=== PATIENT | female | born 1970 | race Caucasian/White ===

== ENCOUNTER 2017-01-13 23:05 | Emergency (ER) | payer MEDICARE, MEDICAID ==
[~2017-01-13] VITALS: Ht 167.6 cm; Wt 99.8 kg
[~2017-01-13 23:05] MED LIST: AMOX500C2 PO; ARPZ20T PO; ARPZ30T; ARPZ30T PO; BENZ-13 PO; CEFD300C3 PO; CLIN75CA2 PO; D50KC PO; DULO60CA58; DULO60CA6 PO; HYDR-2856 PO; HYDR-700 PO; LACT1CAP62 PO; LISI1TAB6; LISI5TAB PO; PRD20T PO; PREN1TAB39 PO; SLEEP AID PO; TRAM50TA2 PO; ZLP10T PO; ZOLP5TAB7
--- NOTE | 2017-01-13 23:36 | ED GI ---
General Chief Complaint: Abdominal/GI Problems Stated Complaint: RECTAL BLEEDING Nursing Triage Note: c/o constipation and hemorrhoids Sepsis Screen: No Definite Risk Source of Information: Patient Exam Limitations: No Limitations History of Present Illness Time Seen By Provider: 23:35 Initial Comments Patient complains of bleeding hemorrhoids for the past few days. She states the bleeding is getting worse. She has been constipated and has been straining at stool. She also thinks she may have a bladder infection. Currently menstruating Allergies and Home Medications Allergies Coded Allergies: clindamycin (Verified Allergy, Mild, RASH AND ITCHING, 12/10/12) sulfamethoxazole (Verified Allergy, Mild, RASH, 12/10/12) trimethoprim (Verified Allergy, Mild, RASH, 12/10/12) Penicillins (Verified Allergy, Unknown, 09/06/14) Home Medications Aripiprazole 30 Mg Tablet, #30 (Reported) Docusate Sodium 100 Mg Capsule, 100 MG PO BID for 10 Days Prescribed by: MIKE SAHA on 01/14/17 0004 Duloxetine HCl 60 Mg Capsule., #60 (Reported) Hydrocortisone 30 Gm Cream..g., 30 GM RC BID, #1 Prescribed by: MIKE SAHA on 01/14/17 0004 Lisinopril/Hydrochlorothiazide 1 Each Tablet, #30 (Reported) Zolpidem Tartrate 5 Mg Tablet, #30 (Reported) Review of Systems Constitutional: no symptoms reported Gastrointestinal: See HPI, Rectal Bleeding Genitourinary: Frequency Musculoskeletal: no symptoms reported Past Qkdiymz-Mrcxxd-Dzpldc Hx Patient Social History Alcohol Use: Denies Use Recreational Drug Use: No Smoking Status: Current Everyday Smoker Type Used: Cigarettes Recent Foreign Travel: No Contact w/Someone Who Travel: No Recent Infectious Disease Expo: No Recent Hopitalizations: Yes (D&C, mental issues) Immunizations Up To Date Tetanus Booster (TDap): Less than 5yrs Seasonal Allergies Seasonal Allergies: No Surgeries HX Surgeries: Yes (D&C) Surgeries: Orthopedic Respiratory Hx Respiratory Disorders: No Cardiovascular Hx Cardiac Disorders: Yes Cardiac Disorders: Hypertension Neurological Hx Neurological Disorders: No Reproductive System Hx Reproductive Disorders: No Sexually Transmitted Disease: No Genitourinary Hx Genitourinary Disorders: No Gastrointestinal Hx Gastrointestinal Disorders: Yes Gastrointestinal Disorders: Gall Bladder Disease Musculoskeletal Hx Musculoskeletal Disorders: No Endocrine Hx Endocrine Disorders: No HEENT HX ENT Disorders: Yes (TOP DENTURES) Cancer Hx Cancer: No Psychosocial Hx Psychiatric Problems: No Integumentary HX Skin/Integumentary Disorder: No Blood Transfusions Hx Blood Disorders: No Reviewed Nursing Assessment Reviewed/Agree w Nursing PMH: Yes Family Medical History Significant Family History: No Pertinent Family Hx Physical Exam Vital Signs VS - Last 72 Hours, by Label 01/13/17 23:12 Temp 98.4 Pulse 115 Resp 18 B/P (MAP) 127/80 Pulse Ox 96 Capillary Refill : Less Than 3 Seconds General Appearance: WD/WN, no apparent distress Neck: supple Respiratory: lungs clear, normal breath sounds Cardiovascular: regular rate, rhythm, no edema Gastrointestinal: non tender, soft Rectal: hemorrhoids (large inflamed tender nonthrombosed external hemorrhoids with no active bleeding.) Extremities: normal inspection Neurologic/Psychiatric: alert, normal mood/affect Skin: normal color, warm/dry Progress/Results/Core Measures Results/Orders Lab Results Laboratory Tests Test 01/13/17 23:35 01/13/17 23:40 Range/Units White Blood Count 11.3 H 4.3-11.0 10^3/uL Red Blood Count 4.34 L 4.35-5.85 10^6/uL Hemoglobin 12.4 11.5-16.0 G/DL Hematocrit 37 35-52 % Mean Corpuscular Volume 86 80-99 FL Mean Corpuscular Hemoglobin 29 25-34 PG Mean Corpuscular Hemoglobin Concent 33 32-36 G/DL Red Cell Distribution Width 16.7 H 10.0-14.5 % Platelet Count 297 130-400 10^3/uL Mean Platelet Volume 10.6 H 7.4-10.4 FL Neutrophils (%) (Auto) 59 42-75 % Lymphocytes (%) (Auto) 29 12-44 % Monocytes (%) (Auto) 10 0-12 % Eosinophils (%) (Auto) 2 0-10 % Basophils (%) (Auto) 0 0-10 % Neutrophils # (Auto) 6.7 1.8-7.8 X 10^3 Lymphocytes # (Auto) 3.3 1.0-4.0 X 10^3 Monocytes # (Auto) 1.1 H 0.0-1.0 X 10^3 Eosinophils # (Auto) 0.3 0.0-0.3 10^3/uL Basophils # (Auto) 0.0 0.0-0.1 10^3/uL Urine Color YELLOW Urine Clarity SLIGHTLY CLOUDY Urine pH 5 5-9 Urine Specific [place] 1.020 1.016-1.022 Urine Protein 2+ H NEGATIVE Urine Glucose (UA) NEGATIVE NEGATIVE Urine Ketones 1+ H NEGATIVE Urine Nitrite NEGATIVE NEGATIVE Urine Bilirubin NEGATIVE NEGATIVE Urine Urobilinogen 1 NORMAL MG/DL Urine Leukocyte Esterase 2+ H NEGATIVE Urine RBC (Auto) 5+ H NEGATIVE Urine RBC >100 H /HPF Urine WBC 0-2 /HPF Urine Squamous Epithelial Cells 10-25 H /HPF Urine Crystals NONE /LPF Urine Bacteria TRACE /HPF Urine Casts NONE /LPF Urine Mucus LARGE H /LPF Urine Culture Indicated NO Labs were reviewed and shared with patient My Orders Orders - MIKE SAHA MD Cbc With Automated Diff (01/13/17 23:20) Ua Culture If Indicated (01/13/17 23:20) Vital Signs/I&O Vital Sign - Last 12Hours 01/13/17 23:12 Temp 98.4 Pulse 115 Resp 18 B/P (MAP) 127/80 Pulse Ox 96 Blood Pressure Mean: 96 Departure Impression Impression: Primary Impression: Bleeding external hemorrhoids Disposition: 01 HOME, SELF-CARE Condition: Stable Departure-Patient Inst. Decision time for Depature: 00:02 Referrals: NO,LOCAL PHYSICIAN (PCP/Family) Primary Care Physician Patient Instructions: Hemorrhoids Scripts Hydrocortisone (Anusol-Hc) 30 Gm Cream..g. 30 GM RC BID, #1 TUBE Prov: MIKE SAHA MD 01/14/17 Docusate Sodium (Colace) 100 Mg Capsule 100 MG PO BID for 10 Days, CAP Prov: MIKE SAHA MD 01/14/17 MIKE SAHA MD Jan 13, 2017 23:36
[2017-01-13 23:42] LABS: BASOPHILS % (AUTO) 0 % (0-10); EOSINOPHILS # (AUTO) 0.3 10^3/uL (0.0-0.3); EOSINOPHILS % (AUTO) 2 % (0-10); LYMPHOCYTES # (AUTO) 3.3 X 10^3 (1.0-4.0); LYMPHOCYTES % (AUTO) 29 % (12-44); MEAN CORPUSCULAR HEMOGLOBIN 29 PG (25-34); MEAN CORPUSCULAR HGB CONC 33 G/DL (32-36); MEAN CORPUSCULAR VOLUME 86 FL (80-99); MEAN PLATELET VOLUME 10.6 FL (7.4-10.4); MONOCYTES # (AUTO) 1.1 X 10^3 (0.0-1.0); MONOCYTES % (AUTO) 10 % (0-12); NEUTROPHILS # (AUTO) 6.7 X 10^3 (1.8-7.8); NEUTROPHILS % (AUTO) 59 % (42-75); PLATELET COUNT 297 10^3/uL (130-400); RED BLOOD COUNT 4.34 10^6/uL (4.35-5.85); RED CELL DISTRIBUTION WIDTH 16.7 % (10.0-14.5); WHITE BLOOD COUNT 11.3 10^3/uL (4.3-11.0)
[2017-01-13 23:48] LABS: BILIRUBIN,URINE NEGATIVE (NEGATIVE); KETONES,URINE 1+ (NEGATIVE); LEUKOCYTE ESTERASE ,URINE 2+ (NEGATIVE); NITRITE,URINE NEGATIVE (NEGATIVE); PH,URINE 5 (5-9); PROTEIN,URINE 2+ (NEGATIVE); UROBILINOGEN,URINE 1 MG/DL (NORMAL)
[2017-01-14] MEDS ORDERED: HYDR30CR71 RC (00:04)
[2017-01-14] MEDS ORDERED: DOCU-143 PO (00:04)
[2017-01-14 00:16] LABS: WBC,URINE 0-2 /HPF
[2017-01-14 00:25] VITALS: BP 124/78
== END 2017-01-14 00:24 | disposition home or self-care (01) ==
LOC: EDUNIT# 23:05 → ER 23:08
DX: K64.4 Residual hemorrhoidal skin tags (principal); I10 Essential (primary) hypertension; Z79.899 Other long term (current) drug therapy
CPT/HCPCS: 36415; 81000; 85025; 99282

== ENCOUNTER 2018-01-02 14:33 | Emergency (ER) | payer MEDICARE, MEDICAID ==
[~2018-01-02] VITALS: Ht 167.6 cm; Wt 98.4 kg
[~2018-01-02 14:33] MED LIST changes: +DOCU-143 PO; +HYDR30CR71 RC
[2018-01-02] MEDS ORDERED: LACTATED RINGERS 1,000 ML IV ONE (14:51)
--- NOTE | 2018-01-02 14:53 | ED Chest Pain ---
General Chief Complaint: Chest Pain Stated Complaint: CP Source: patient Exam Limitations: no limitations History of Present Illness Date Seen by Provider: Jan 02, 2018 Time Seen by Provider: 14:53 Initial Comments To ER with central chest pain described as an "vice" that began this morning. Pain lasted about an hour and then resolved. It then recurred about an hour and a half ago and has been constant since then. She denies shortness of breath nausea or vomiting but the pain does radiate up to her neck and her jaw. She has no personal history of heart disease but her mother did have congestive heart failure. She does smoke 10 cigarettes per day. She's also been under increased stress for the past week at home. Timing/Duration: changing over time Severity/Quality: moderate Location: central ASA po INTERIOR DESIGN CONSULTANT: No NTG SL INTERIOR DESIGN CONSULTANT: No Associated Symptoms: No heartburn, No nausea/vomiting Allergies and Home Medications Allergies Coded Allergies: clindamycin (Verified Allergy, Mild, RASH AND ITCHING, 12/10/12) sulfamethoxazole (Verified Allergy, Mild, RASH, 12/10/12) trimethoprim (Verified Allergy, Mild, RASH, 12/10/12) Penicillins (Verified Allergy, Unknown, 09/06/14) Home Medications Docusate Sodium 100 Mg Capsule, 100 MG PO BID Prescribed by: MIKE SAHA on 01/14/17 0004 Hydrocortisone 30 Gm Cream..g., 30 GM RC BID Prescribed by: MIKE SAHA on 01/14/17 0004 Patient Home Medication List Home Medication List Reviewed: Yes Review of Systems Constitutional: see HPI EENTM: No Symptoms Reported Respiratory: No Symptoms Reported Cardiovascular: See HPI, Chest Pain Gastrointestinal: No Symptoms Reported Genitourinary: No Symptoms Reported Musculoskeletal: no symptoms reported Skin: no symptoms reported Psychiatric/Neurological: No Symptoms Reported Endocrine: No Symptoms Reported Hematologic/Lymphatic: No Symptoms Reported Past Bwkewzm-Krpoyj-Jddhcq Hx Patient Social History Type Used: Cigarettes Recent Foreign Travel: No Contact w/Someone Who Travel: No Recent Hopitalizations: Yes (D&C, mental issues) Immunizations Up To Date Tetanus Booster (TDap): Less than 5yrs Seasonal Allergies Seasonal Allergies: No Past Medical History Orthopedic Hypertension Reproductive Disorders: No Sexually Transmitted Disease: No Gall Bladder Disease Family Medical History No Pertinent Family Hx Physical Exam Vital Signs Vital Signs - First Documented 01/02/18 15:03 Temp 98.4 Pulse 100 Resp 18 B/P (MAP) 142/94 (110) Pulse Ox 98 O2 Delivery Room Air Capillary Refill : General Appearance: No Apparent Distress, WD/WN HEENT: PERRL/EOMI, TMs Normal Neck: Full Range of Motion, Normal Inspection Respiratory: No Accessory Muscle Use, No Respiratory Distress Cardiovascular: Regular Rate, Rhythm, Normal Peripheral Pulses Gastrointestinal: Normal Bowel Sounds, Non Tender, Soft Extremity: Normal Capillary Refill, Normal Inspection Neurologic/Psychiatric: Alert, Oriented x3, No Motor/Sensory Deficits Skin: Normal Color, Warm/Dry Progress/Results/Core Measures Lab Results Laboratory Tests Test 01/02/18 14:46 01/02/18 16:50 Range/Units White Blood Count 13.2 H 4.3-11.0 10^3/uL Red Blood Count 4.32 L 4.35-5.85 10^6/uL Hemoglobin 12.8 11.5-16.0 G/DL Hematocrit 37 35-52 % Mean Corpuscular Volume 86 80-99 FL Mean Corpuscular Hemoglobin 30 25-34 PG Mean Corpuscular Hemoglobin Concent 34 32-36 G/DL Red Cell Distribution Width 16.1 H 10.0-14.5 % Platelet Count 314 130-400 10^3/uL Mean Platelet Volume 10.7 H 7.4-10.4 FL Neutrophils (%) (Auto) 67 42-75 % Lymphocytes (%) (Auto) 22 12-44 % Monocytes (%) (Auto) 9 0-12 % Eosinophils (%) (Auto) 2 0-10 % Basophils (%) (Auto) 0 0-10 % Neutrophils # (Auto) 8.9 H 1.8-7.8 X 10^3 Lymphocytes # (Auto) 3.0 1.0-4.0 X 10^3 Monocytes # (Auto) 1.1 H 0.0-1.0 X 10^3 Eosinophils # (Auto) 0.2 0.0-0.3 10^3/uL Basophils # (Auto) 0.0 0.0-0.1 10^3/uL Prothrombin Time 13.3 12.2-14.7 SEC INR Comment 1.0 0.8-1.4 Activated Partial Thromboplast Time 32 24-35 SEC D-Dimer 0.61 H 0.00-0.49 UG/ML Sodium Level 137 135-145 MMOL/L Potassium Level 3.6 3.6-5.0 MMOL/L Chloride Level 101 98-107 MMOL/L Carbon Dioxide Level 22 21-32 MMOL/L Anion Gap 14 5-14 MMOL/L Blood Urea Nitrogen 9 7-18 MG/DL Creatinine 0.85 0.60-1.30 MG/DL Estimat Glomerular Filtration Rate > 60 BUN/Creatinine Ratio 11 Glucose Level 112 H 70-105 MG/DL Calcium Level 9.7 8.5-10.1 MG/DL Magnesium Level 2.1 1.8-2.4 MG/DL Total Bilirubin 0.3 0.1-1.0 MG/DL Aspartate Amino Transf (AST/SGOT) 15 5-34 U/L Alanine Aminotransferase (ALT/SGPT) 10 0-55 U/L Alkaline Phosphatase 83 40-136 U/L Myoglobin 39.1 10.0-92.0 NG/ML Troponin I < 0.30 < 0.30 <0.30 NG/ML B-Type Natriuretic Peptide < 10.0 <100.0 PG/ML Total Protein 8.1 6.4-8.2 GM/DL Albumin 4.5 3.2-4.5 GM/DL My Orders Orders - KYM DIEHL APRN Cbc With Automated Diff (01/02/18 14:51) Magnesium (01/02/18 14:51) Chest 1 View, Ap/Pa Only (01/02/18 14:51) Ekg Tracing (01/02/18 14:51) Cardiac Profile 1 (01/02/18 14:51) Comprehensive Metabolic Panel (01/02/18 14:51) Myoglobin Serum (01/02/18 14:51) Protime With Inr (01/02/18 14:51) Partial Thromboplastin Time (01/02/18 14:51) O2 (01/02/18 14:51) Monitor-Rhythm Ecg Trace Only (01/02/18 14:51) Aspirin Chewable Tablet (Baby Aspirin Ch (01/02/18 15:00) Saline Lock/Iv-Start (01/02/18 14:51) BNP (01/02/18 14:51) Fibrin Degradation Products (01/02/18 14:51) Saline Lock/Iv-Start (01/02/18 14:51) Lactated Ringers (Lr 1000 Ml Iv Solution (01/02/18 14:51) Metoprolol Tartrate Injection (Lopressor (01/02/18 15:00) Ct Angio Chest W (01/02/18 15:33) Iohexol Injection (Omnipaque 350 Mg/Ml 1 (01/02/18 16:00) Ns (Ivpb) (Sodium Chloride 0.9%) (01/02/18 16:00) Troponin I (01/02/18 16:44) Medications Given in ED Current Medications Medications Dose Ordered Sig/Joseph Route Start Time Stop Time Status Last Admin Dose Admin Aspirin 324 mg ONCE ONCE PO 01/02/18 15:00 01/02/18 15:01 DC 01/02/18 15:18 324 MG Iohexol 125 ml ONCE ONCE IV 01/02/18 16:00 01/02/18 16:02 DC 01/02/18 16:02 125 ML Lactated Ringer's 1,000 ml @ 0 mls/hr Q0M ONCE IV 01/02/18 14:51 01/02/18 14:53 DC 01/02/18 15:19 0 MLS/HR Sodium Chloride 80 ml ONCE ONCE IV 01/02/18 16:00 01/02/18 16:02 DC 01/02/18 16:02 80 ML Vital Signs/I&O 01/02/18 01/02/18 01/02/18 15:03 15:03 17:45 Temp 98.4 Pulse 100 89 Resp 18 20 B/P (MAP) 142/94 (110) 125/85 Pulse Ox 98 98 O2 Delivery Room Air Diagonstic Imaging: Xray, CT Comments NAME: ERNESTINA DIANA [facility] REC#: [id number] PT STATUS: REG ER : 1970 PHYSICIAN: KYM DIEHL SOLUTION STRATEGIST ADMIT DATE: 01/02/18/ER Draft Date of Exam:01/02/18 CT ANGIO CHEST W INDICATION: Hypertension and chest pain. TECHNIQUE: CTA chest obtained with IV contrast bolus and axial slices and MIP reconstructions. FINDINGS: The pulmonary parenchymal vessels appear well opacified with no CT evidence of pulmonary emboli. There is no evidence of aortic aneurysm or dissection. Great vessel origins are unremarkable. There is no pleural or pericardial fluid. There is no adenopathy in the mediastinum or cherelle or axillary regions. Visualized portions of the upper abdomen were unremarkable. Lung parenchymal windows demonstrate no pulmonary parenchymal infiltrates. There is a 3 mm nodule in the right upper lobe anterolaterally, without calcification. IMPRESSION: No evidence of pulmonary emboli or aortic dissection or definite acute process in the chest. There is a 3 mm nodule in the right upper lobe anteriorly which is nonspecific. Nodules of this size do not require followup unless the patient is at high clinical risk, consider followup if clinically warranted in six months. Dictated on workstation # [id number] Dict: 01/02/18 1613 Trans: 01/02/18 1621 [id number] Interpreted by: JUNITO CHOE MD Electronically signed by: Departure Communication (Admissions) [id number] resting in bed, despite no treatment here her chest pain is resolved now. Shes been listening to music. States "i carry a lot of my anxiety in my chest" and she believes that was the cause of this chest pain. Impression Primary Impression: Chest pain Disposition: 01 HOME, SELF-CARE Condition: Improved Departure-Patient Inst. Decision time for Depature: 17:09 Referrals: MARIA DOLORES MOCTEZUMA MD (PCP/Family) Primary Care Physician Patient Instructions: Chest Pain (DC) Add. Discharge Instructions: 1. Follow up with your doctor for recheck within 72 hours 2. Return to ER for any concerns or worsening symptoms All discharge instructions reviewed with patient and/or family. Voiced understanding. KYM DIEHL APRN Jan 02, 2018 14:53
[2018-01-02 14:58] LABS: BASOPHILS % (AUTO) 0 % (0-10); EOSINOPHILS # (AUTO) 0.2 10^3/uL (0.0-0.3); EOSINOPHILS % (AUTO) 2 % (0-10); HEMATOCRIT 37 % (35-52); HEMOGLOBIN 12.8 G/DL (11.5-16.0); LYMPHOCYTES % (AUTO) 22 % (12-44); MEAN CORPUSCULAR HEMOGLOBIN 30 PG (25-34); MEAN CORPUSCULAR HGB CONC 34 G/DL (32-36); MEAN CORPUSCULAR VOLUME 86 FL (80-99); MEAN PLATELET VOLUME 10.7 FL (7.4-10.4); MONOCYTES # (AUTO) 1.1 X 10^3 (0.0-1.0); MONOCYTES % (AUTO) 9 % (0-12); NEUTROPHILS # (AUTO) 8.9 X 10^3 (1.8-7.8); NEUTROPHILS % (AUTO) 67 % (42-75); PLATELET COUNT 314 10^3/uL (130-400); RED BLOOD COUNT 4.32 10^6/uL (4.35-5.85); RED CELL DISTRIBUTION WIDTH 16.1 % (10.0-14.5); WHITE BLOOD COUNT 13.2 10^3/uL (4.3-11.0)
[2018-01-02] MEDS ORDERED: meTOprolol 5 MG/5 ML (LOPRESSOR) VIAL IV ONE (15:00)
[2018-01-02] MEDS ORDERED: ASPIRIN 81 MG CHEW (CHILDREN'S ASA) PO ONE (15:00)
[2018-01-02 15:09] LABS: PROTHROMBIN TIME PATIENT 13.3 SEC (12.2-14.7)
--- NOTE | 2018-01-02 15:16 | Diagnostic Imaging Report ---
INDICATION: Chest pain EXAM: Frontal chest obtained at 3:09 hours p.m. COMPARISON with 05/30/2015 FINDINGS: The heart and mediastinal silhouette are normal in appearance. The lungs are clear. There is no pneumothorax or pleural fluid. IMPRESSION: Negative chest. Dictated by: Dictated on workstation # [id number]
[2018-01-02 15:17] LABS: ALANINE AMINOTRANSFERASE 10 U/L (0-55); ALBUMIN 4.5 GM/DL (3.2-4.5); ALKALINE PHOSPHATASE 83 U/L (40-136); BILIRUBIN,TOTAL 0.3 MG/DL (0.1-1.0); BUN/CREATININE RATIO 11; CALCIUM 9.7 MG/DL (8.5-10.1); CARBON DIOXIDE 22 MMOL/L (21-32); CHLORIDE 101 MMOL/L (98-107); CREATININE SERUM 0.85 MG/DL (0.60-1.30); GFR ESTIMATED > 60; GLUCOSE 112 MG/DL (70-105); MAGNESIUM 2.1 MG/DL (1.8-2.4); POTASSIUM 3.6 MMOL/L (3.6-5.0); SODIUM 137 MMOL/L (135-145); TOTAL PROTEIN 8.1 GM/DL (6.4-8.2)
[2018-01-02 15:23] LABS: MYOGLOBIN SERUM 39.1 NG/ML (10.0-92.0)
[2018-01-02] MEDS ORDERED: NS 250 ML (IVPB) BAG IV ONE (16:00)
[2018-01-02] MEDS ORDERED: IOHEXOL 350 MG/ML 150 ML (OMNIPAQUE 350) VIAL IV ONE (16:00)
--- NOTE | 2018-01-02 16:21 | Diagnostic Imaging Report ---
INDICATION: Hypertension and chest pain. TECHNIQUE: CTA chest obtained with IV contrast bolus and axial slices and MIP reconstructions. FINDINGS: The pulmonary parenchymal vessels appear well opacified with no CT evidence of pulmonary emboli. There is no evidence of aortic aneurysm or dissection. Great vessel origins are unremarkable. There is no pleural or pericardial fluid. There is no adenopathy in the mediastinum or cherelle or axillary regions. Visualized portions of the upper abdomen were unremarkable. Lung parenchymal windows demonstrate no pulmonary parenchymal infiltrates. There is a 3 mm nodule in the right upper lobe anterolaterally, without calcification. IMPRESSION: No evidence of pulmonary emboli or aortic dissection or definite acute process in the chest. There is a 3 mm nodule in the right upper lobe anteriorly which is nonspecific. Nodules of this size do not require followup unless the patient is at high clinical risk, consider followup if clinically warranted in six months. Dictated by: Dictated on workstation # [id number]
[2018-01-02 17:45] VITALS: BP 125/85
== END 2018-01-02 17:45 | disposition home or self-care (01) ==
LOC: EDUNIT# 14:33 → ER 14:35
DX: R07.9 Chest pain, unspecified (principal); I10 Essential (primary) hypertension; Z87.19 Personal history of other diseases of the digestive system; Z87.59 Personal history of other complications of pregnancy, childbirth and the puerperium; Z88.0 Allergy status to penicillin; Z88.1 Allergy status to other antibiotic agents; Z88.2 Allergy status to sulfonamides; Z82.49 Family history of ischemic heart disease and other diseases of the circulatory system
CPT/HCPCS: 36415; 71045; 71275; 80053; 83735; 83874; 83880; 84484; 85025; 85379; 85610; 85730; 93005; 93041

== ENCOUNTER 2019-05-31 13:15 | Emergency (ER) | payer MEDICARE, MEDICAID ==
[~2019-05-31] VITALS: Ht 167.6 cm; Wt 98.4 kg
[~2019-05-31 13:15] MED LIST changes: -DULO60CA58; +DULO60CA59
--- NOTE | 2019-05-31 13:51 | ED Lower Extremity ---
General Chief Complaint: Lower Extremity Stated Complaint: R KNEE SWELLING,L KNEE PAIN Nursing Triage Note: Patient reports R leg swelling x 1 week Nursing Sepsis Screen: No Definite Risk Source: patient Exam Limitations: no limitations History of Present Illness Date Seen by Provider: May 31, 2019 Time Seen by Provider: 13:49 Initial Comments To ER with right knee swelling for one week. No known injury. Has a history of degenerative joint she states. It has never swelled up this large before. No known injury. No fevers or chills or systemic symptoms. She feels as though her knee is going to give out on her when she is up walking. Just finished oral steroids 2 weeks ago for an eye condition. Onset: last week Severity: moderate Pain/Injury Location: right knee Method of Injury: unknown Modifying Factors: Worse With Movement Allergies and Home Medications Allergies Coded Allergies: clindamycin (Verified Allergy, Mild, RASH AND ITCHING, 12/10/12) sulfamethoxazole (Verified Allergy, Mild, RASH, 12/10/12) trimethoprim (Verified Allergy, Mild, RASH, 12/10/12) Penicillins (Verified Allergy, Unknown, 09/06/14) Home Medications Docusate Sodium 100 Mg Capsule, 100 MG PO BID Prescribed by: MIKE SAHA on 01/14/17 0004 Hydrocortisone 30 Gm Cream..g., 30 GM RC BID Prescribed by: MIKE SAHA on 01/14/17 0004 Patient Home Medication List Home Medication List Reviewed: Yes Review of Systems Constitutional: see HPI EENTM: see HPI Respiratory: no symptoms reported Cardiovascular: no symptoms reported Genitourinary: no symptoms reported Musculoskeletal: see HPI Skin: no symptoms reported Psychiatric/Neurological: No Symptoms Reported Past Wrkohfw-Xdgufx-Sibpxa Hx Patient Social History Alcohol Use: Denies Use Recreational Drug Use: No Smoking Status: Current Everyday Smoker Type Used: Cigarettes Recent Foreign Travel: No Contact w/Someone Who Travel: No Recent Infectious Disease Expo: No Recent Hopitalizations: No Physical Abuse: No Sexual Abuse: No Mistreated: No Fear: No Immunizations Up To Date Tetanus Booster (TDap): Less than 5yrs Seasonal Allergies Seasonal Allergies: No Past Medical History Surgeries: Yes (D&C, r/l wrist, r ring finger) Orthopedic Respiratory: No Cardiac: Yes Hypertension Neurological: No Reproductive Disorders: No Sexually Transmitted Disease: No Genitourinary: No Gastrointestinal: Yes Gall Bladder Disease Musculoskeletal: No Endocrine: No HEENT: No Cancer: No Psychosocial: No Integumentary: No Blood Disorders: No Family Medical History No Pertinent Family Hx Physical Exam Vital Signs Vital Signs - First Documented 05/31/19 13:31 Temp 98.2 Pulse 87 Resp 18 B/P (MAP) 144/82 (102) Pulse Ox 95 Capillary Refill : Less Than 3 Seconds Height, Weight, BMI Height: 5'6.00" Weight: 217lbs. oz. 98.469680ip; 32.28 BMI Method:Stated General Appearance: WD/WN, no apparent distress HEENT: PERRL/EOMI, normal ENT inspection Respiratory: no respiratory distress, no accessory muscle use Hips: bilateral hip non-tender, bilateral hip normal inspection, bilateral hip normal range of motion Legs: bilateral leg non-tender, bilateral leg normal inspection, bilateral leg normal range of motion Knees: right knee pain, right knee soft tissue tenderness, right knee other (no palpable effusion no erythema no abrasion no ecchymosis) Ankles: bilateral ankle non-tender, bilateral ankle normal inspection, bilateral ankle normal range of motion Feet: bilateral foot non-tender, bilateral foot normal inspection, bilateral foot normal range of motion Neurologic/Psychiatric: alert, normal mood/affect, oriented x 3 Skin: normal color Progress/Results/Core Measures Results/Orders My Orders Orders - KYM DIEHL APRN Knee Immobilizer (05/31/19 13:49) Vital Signs/I&O 05/31/19 13:31 Temp 98.2 Pulse 87 Resp 18 B/P (MAP) 144/82 (102) Pulse Ox 95 Blood Pressure Mean: 102 Departure Impression Primary Impression: Internal derangement of knee joint Qualified Codes: M23.91 - Unspecified internal derangement of right knee Disposition: HOME, SELF-CARE Condition: Stable Departure-Patient Inst. Decision time for Depature: 13:51 Referrals: MARIA DOLORES MOCTEZUMA MD (PCP/Family) Primary Care Physician Patient Instructions: Internal Derangement of the Knee (DC) Add. Discharge Instructions: Wear the immobilizer when you're up moving around. Follow-up with primary care to schedule an MRI of the knee. All discharge instructions reviewed with patient and/or family. Voiced understanding. KYM DIEHL APRN May 31, 2019 13:51
[2019-05-31 13:58] VITALS: BP 144/82
== END 2019-05-31 13:58 | disposition home or self-care (01) ==
LOC: EDUNIT# 13:15 → ER 13:16
DX: M23.91 Unspecified internal derangement of right knee (principal); I10 Essential (primary) hypertension; F17.210 Nicotine dependence, cigarettes, uncomplicated; Z88.1 Allergy status to other antibiotic agents; Z88.2 Allergy status to sulfonamides; Z88.0 Allergy status to penicillin
CPT/HCPCS: 99283

== ENCOUNTER 2019-07-25 12:50 | Outpatient (CLI) | payer MEDICARE, MEDICAID ==
[~2019-07-25] VITALS: Ht 167 cm; Wt 100.9 kg
[~2019-07-25 12:50] MED LIST changes: +CHOL2000 PO; +FERR-84 PO; +METH18TA12 PO
== END 2019-07-25 13:15 | disposition home or self-care (01) ==
LOC: PREOP 12:50
PROVIDERS: ATTEND Surgery
DX: Z01.818 Encounter for other preprocedural examination (principal)

== ENCOUNTER 2019-08-22 05:33 | Outpatient (CLI) | payer MEDICARE, MEDICAID ==
[~2019-08-22] VITALS: Ht 167 cm; Wt 100.9 kg
== END 2019-08-22 12:15 ==
LOC: PREOP 05:33
PROVIDERS: ATTEND Surgery
DX: Z01.818 Encounter for other preprocedural examination (principal)

== ENCOUNTER 2019-08-26 11:00 | Day surgery (SDC) | payer MEDICARE, MEDICAID ==
[~2019-08-26] VITALS: Ht 172.7 cm; Wt 100.9 kg
[2019-08-26] MEDS ORDERED: LACTATED RINGERS 1,000 ML IV ONE (11:04)
[2019-08-26] MEDS ORDERED: LACTATED RINGERS 1,000 ML IV STA (11:08)
[2019-08-26 11:15] VITALS: BP 119/80
[2019-08-26] MEDS ORDERED: HURRICAINE EXT TUBE (BENZOCAINE) XX PRN (11:15)
[2019-08-26] MEDS ORDERED: MIDAZOLAM 2 MG/2 ML (VERSED) VIAL ONE (11:27)
[2019-08-26] MEDS ORDERED: PROPOFOL INJECTION 50 ML IV ONE ×2 (11:27→11:49)
[2019-08-26 12:00] VITALS: BP 148/89
[2019-08-26] MEDS ORDERED: PANT40TA2 PO (12:03)
--- NOTE | 2019-08-26 12:04 | Progress Note-Post Operative ---
Post-Operative Progess Note Surgeon (s)/Rn Hyperbaric (s) Surgeon DENISHA VILLANUEVA DO Rn Hyperbaric: na Pre-Operative Diagnosis Iron deficiency anemia, Blood in stools Post-Operative Diagnosis Gastritis, hemrrhoidal disease, hiatal hernia Procedure & Operative Findings Date of Procedure 08/26/19 Procedure Performed/Findings EGD with biopsies, colonoscopy Anesthesia Type per retail event and sales assistant Estimated Blood Loss Estimated blood loss (mL): none Specimens/Packing Specimens Removed biopsies of antrum, GE junction, and distal esophagus DENISHA VILLANUEVA DO Aug 26, 2019 12:04 POS
[2019-08-26 12:05] VITALS: BP 138/84
--- NOTE | 2019-08-26 12:05 | Discharge Inst-Simple/Standard ---
Discharge Inst-Standard Discharge Medications New, Converted or Re-Newed RX: Transmitted to Pharmacy Patient Instructions/Follow Up Plan of Care/Instructions/FU: follow in in clinic in 2 weeks to discuss pathology report, if any concerns arise before then, will see at that time Activity as Tolerated: Yes Discharge Diet: Regular Diet DENISHA VILLANUEVA DO Aug 26, 2019 12:05 POS
[2019-08-26 12:15] VITALS: BP 138/84
[2019-08-26 12:35] VITALS: BP 135/75
--- NOTE | 2019-08-26 19:30 | OPERATIVE REPORT ---
DATE OF SERVICE: 08/26/2019 PREOPERATIVE DIAGNOSES: Iron deficiency anemia and blood in stools. POSTOPERATIVE DIAGNOSES: Gastritis, hiatal hernia, hemorrhoidal disease. PROCEDURE: EGD with biopsies, colonoscopy. SURGEON: Denisha Spence DO ANESTHESIA: Per WASTE SALVAGER. ESTIMATED BLOOD LOSS: None. COMPLICATIONS: None. INDICATIONS: The patient is a 49-year-old female with symptoms as noted above. She understands risks and benefits of procedure and wished to proceed with procedures. Consent was signed in the chart. DESCRIPTION OF PROCEDURE: The patient was taken to the endoscopy suite, placed in left lateral recumbent position. Timeout was performed. Scope was inserted in mouth, down the esophagus, stomach and into the duodenum without difficulty. There were no polyps, masses or ulcerations in the duodenum. Scope was slowly retracted back into the stomach where it was further insufflated. A significant erythematous changes and inflammation present in the antrum. Biopsy was obtained. Scope was slowly retracted back and retroflexed noting a hiatal hernia, no other pathology noted. Scope was returned to its normal position, slowly withdrawn to the distal esophagus. At the GE junction, some prominence of the GE junction and inflammation was present. Biopsy was obtained. Scope was then continued slowly retracted back to the distal esophagus. Biopsy of the distal esophagus was obtained. Scope was then slowly retracted back to completely remove noting no other pathology. Digital rectal exam was performed noting internal and external hemorrhoidal disease. No palpable polyps, masses or ulcerations. Scope was inserted in the rectum, advanced all the way to cecum with minimal difficulty. Prep was adequate. Scope was then slowly retracted back. No polyps, masses, or ulcerations within the cecum, ascending, transverse, descending and sigmoid colon. Once in the rectum, scope was retroflexed noting hemorrhoidal disease. Scope was returned to its normal position, slowly withdrawn until completely removed. The patient tolerated procedure well without any complications. She was taken to recovery room in stable condition. RECOMMENDATIONS: The patient will need repeat colonoscopy in 10 years unless family history of colon cancer, which then be 5 years. Any issues before that be seen at that time. The patient to be started on Protonix 40 mg daily to see how she is doing and see how her symptoms are doing at that time. Any issues before that be seen at that time. Await pathology results. The patient will have follow up appointment in 2 to 3 weeks. Job ID: [id number] DocumentID: [id number] Dictated Date: 08/26/2019 12:03:58 [facility] [place] Date: 08/26/2019 19:29:53 Dictated By: DENISHA SPENCE DO
--- NOTE | 2019-08-28 15:03 | Anesthesia-General Post-Op ---
MAC Patient Condition Mental Status/LOC: Same as Preop Cardiovascular: Satisfactory Nausea/Vomiting: Absent Respiratory: Satisfactory Pain: Controlled Complications: Absent Post Op Complications Complications None Follow Up Care/Instructions Patient Instructions None needed. Anesthesiology Discharge Order Discharge Order late entry from 08/26/19 at 1232: Patient is doing well, no complaints, stable vital signs, no apparent adverse anesthesia problems. No complications reported per nursing. ZAHRA PERDUE CRNA Aug 28, 2019 15:03 POS
== END 2019-08-26 12:35 ==
LOC: ENDO 11:00
PROVIDERS: ATTEND Surgery
DX: K92.1 Melena (principal); K29.50 Unspecified chronic gastritis without bleeding; K20.9 Esophagitis, unspecified; K22.70 Barrett's esophagus without dysplasia; K62.1 Rectal polyp; D50.9 Iron deficiency anemia, unspecified; K31.89 Other diseases of stomach and duodenum; K64.9 Unspecified hemorrhoids; I10 Essential (primary) hypertension; E66.9 Obesity, unspecified; F17.210 Nicotine dependence, cigarettes, uncomplicated; F41.9 Anxiety disorder, unspecified; F32.9 Major depressive disorder, single episode, unspecified; F90.9 Attention-deficit hyperactivity disorder, unspecified type; Z88.1 Allergy status to other antibiotic agents; Z79.899 Other long term (current) drug therapy; Z68.36 Body mass index [BMI] 36.0-36.9, adult; Z88.0 Allergy status to penicillin; Z82.49 Family history of ischemic heart disease and other diseases of the circulatory system
CPT/HCPCS: 84703; 88305; 88342

== ENCOUNTER 2019-12-03 12:57 | Outpatient (CLI) | payer MEDICARE, MEDICAID ==
[~2019-12-03] VITALS: Ht 167.7 cm; Wt 110.9 kg
[~2019-12-03 12:57] MED LIST changes: +CHOL200078 PO; +LISI1TAB29 PO; -LISI1TAB6; -METH18TA12 PO; +METH18TA20 PO; +PANT40TA2 PO
== END 2019-12-03 13:05 | disposition home or self-care (01) ==
LOC: PREOP 12:57
PROVIDERS: ATTEND Surgery
DX: Z01.818 Encounter for other preprocedural examination (principal)

== ENCOUNTER 2020-02-13 09:21 | Outpatient (RCR) | payer MEDICARE, MEDICAID ==
[~2020-02-13] VITALS: Ht 167 cm; Wt 101.0 kg
[~2020-02-13 09:21] MED LIST changes: +ARIP30TA PO; +CHOL20003 PO
[2020-02-19] MEDS ORDERED: HYDR-4226 PO (08:54)
[2020-02-19] MEDS ORDERED: DOCU-143 PO (08:54)
== END 2020-02-13 14:50 | disposition home or self-care (01) ==
LOC: PREOP 09:21
PROVIDERS: ATTEND Surgery
DX: Z01.818 Encounter for other preprocedural examination (principal); Z01.812 Encounter for preprocedural laboratory examination; Z11.59 Encounter for screening for other viral diseases; K64.9 Unspecified hemorrhoids
CPT/HCPCS: 87635

== ENCOUNTER 2020-02-19 06:06 | Day surgery (SDC) | payer MEDICARE, MEDICAID ==
[2020-02-19] VITALS (10 sets, daily range): BP systolic 102–140; BP diastolic 61–96
[~2020-02-19] VITALS: Ht 167 cm; Wt 101.0 kg
[2020-02-19] MEDS ORDERED: LACTATED RINGERS 1,000 ML IV PRN ×2 (06:11→06:18)
[2020-02-19] MEDS ORDERED: metroNIDAZOLE 500MG/100ML IVPB 100 ML IV ONE (06:30)
[2020-02-19] MEDS ORDERED: ceFAZolin 2 GM IV Premixed 50 ML ONE (06:37)
[2020-02-19] MEDS ORDERED: CATHETER FLUSH 10 ML SYR IV PRN (06:45)
[2020-02-19] MEDS ORDERED: proPOfol 200 MG/20 ML (DIPRIVAN) VIAL IV ONE (06:52)
[2020-02-19] MEDS ORDERED: ONDANSETRON 4 MG/2 ML (SDV) Z0FRAN ONE (06:52)
[2020-02-19] MEDS ORDERED: SEVOFLURANE (ULTANE) 15 ML INHAL SOLN ONE (06:52)
[2020-02-19] MEDS ORDERED: DEXAMETHASONE 10 MG/ML (DECADRON) 1 ML VIAL ONE (06:52)
[2020-02-19] MEDS ORDERED: LIDOCAINE PF 2% 5 ML (XYLOCAINE) VIAL ONE (06:52)
[2020-02-19] MEDS ORDERED: fentaNYL INJECTION 100 MCG/2 ML AMP ONE (06:53)
[2020-02-19] MEDS ORDERED: MIDAZOLAM 2 MG/2 ML (VERSED) VIAL ONE (06:53)
[2020-02-19] MEDS ORDERED: ceFAZolin 2 GM IV Premixed 50 ML IV ONE (07:00)
[2020-02-19] MEDS ORDERED: HYDROmorphone 2 MG/ML VIAL (DILAUDID) ONE (08:23)
[2020-02-19] MEDS ORDERED: KETOROLAC 30 MG/ML VIAL ONE (08:29)
--- NOTE | 2020-02-19 08:45 | Progress Note-Post Operative ---
Post-Operative Progess Note Surgeon (s)/Ladies' Locker Room Attendant (s) Surgeon DENISHA VILLANUEVA DO Ladies' Locker Room Attendant: na Pre-Operative Diagnosis HEMORRHOIDS Post-Operative Diagnosis same Procedure & Operative Findings Date of Procedure 02/19/20 Procedure Performed/Findings hemorrhoidectomy x 3 Anesthesia Type gen Estimated Blood Loss Estimated blood loss (mL): min Specimens/Packing Specimens Removed hemorrhoids DENISHA VILLANUEVA DO February 19, 2020 08:45
[2020-02-19] MEDS ORDERED: HYDR-4226 PO (08:54)
[2020-02-19] MEDS ORDERED: DOCU-143 PO (08:54)
--- NOTE | 2020-02-19 08:58 | Discharge Inst-Simple/Standard ---
Discharge Inst-Standard Discharge Medications New, Converted or Re-Newed RX: RX on Chart Patient Instructions/Follow Up Plan of Care/Instructions/FU: 2 weeks Bebe Sitz bath three times a day and after bowel movements. Activity as Tolerated: No Discharge Diet: Regular Diet Other Inst to Patient Follow up Appt: Make appointment for 2 week. Instructions: No lifting greater than 10 pounds. No strenuous activity. May shower in 24 hours, no tub bath or soaking. Use incentive spirometer at home as directed. No Smoking Skin/Wound Care: You have a plug in the anus, it will fall off on its own. If not out in 24 hours you can remove it. Sitz bath three times a day and after bowel movements. Symptoms to Report: Appetite Changes, Extremity Discoloration, Numbness/Tingling, Swelling Increased, Bleeding Excessive, Eyesight Changes, Pain Increased, Urine Color Change, Constipation(Persistent), Fever over 101 degree F, Pain/Pressure in chest, Urinating Difficulty, Cough Up/Vomit Blood, Heart Beat Irreg/Pounding, Pain/Pressure in jaw, Vaginal Bleeding Increase, Cramps in feet or legs, Lightheadedness, Pain/Pressure in shoulder, Diarrhea(Persistent), Memory Changes Suddenly, Questions/Concerns, Weight gain consecutive days, Dizziness/Fainting, Nausea/Vomiting, Shortness of Breath, Weight gain over 2 pounds If questions or concerns contact your physician Or seek help at emergency department. DENISHA VILLANUEVA DO February 19, 2020 08:58
[2020-02-19] MEDS ORDERED: HYDROmorphone 2 MG/ML VIAL (DILAUDID) IV ONE (09:00)
[2020-02-19] MEDS ORDERED: ONDANSETRON 4 MG/2 ML (SDV) Z0FRAN IVP PRN (09:00)
[2020-02-19] MEDS ORDERED: HYDROcodone/APAP 5 MG/325 MG (LORTAB) TAB ONE (09:36)
[2020-02-19] MEDS ORDERED: HYDROcodone/APAP 5 MG/325 MG (LORTAB) TAB PO ONE (09:45)
--- NOTE | 2020-02-19 14:49 | Anesthesia-General Post-Op ---
General Patient Condition Mental Status/LOC: Same as Preop Cardiovascular: Satisfactory Nausea/Vomiting: Absent Respiratory: Satisfactory Pain: Controlled Complications: Absent Post Op Complications Complications None Follow Up Care/Instructions Patient Instructions None needed. Anesthesia/Patient Condition Patient Condition Patient is doing well, no complaints, stable vital signs, no apparent adverse anesthesia problems. No complications reported per nursing. D/C home per [facility] Criteria: Yes CAYETANO SHEARER CRNA February 19, 2020 14:49
--- NOTE | 2020-02-19 20:23 | OPERATIVE REPORT ---
DATE OF SERVICE: 02/19/2020 PREOPERATIVE DIAGNOSIS: Hemorrhoids. POSTOPERATIVE DIAGNOSIS: Hemorrhoids. PROCEDURE PERFORMED: Hemorrhoidectomy x3. SURGEON: Denisha Spence DO ANESTHESIA: General. ESTIMATED BLOOD LOSS: Minimal. COMPLICATIONS: None. INDICATIONS FOR PROCEDURE: The patient is a 49-year-old female with hemorrhoids that are bothersome. She understands the risks and benefits of the procedure and wished to proceed with the procedure. Consent was signed in the chart. DESCRIPTION OF PROCEDURE: The patient was taken to the operating suite and she was prepped and draped in a sterile fashion in lithotomy position. Timeout was performed. Local anesthetic was infiltrated on the lateral aspects of the anus. A Dittmar retractor was inserted into the rectum and the right posterior hemorrhoid complex was grasped, elevated and using harmonic this was excised. The right anterior hemorrhoid complex was grasped and elevated and using the harmonic, this hemorrhoid was excised. Hemostasis was achieved. The left lateral hemorrhoid complex was visualized. It was grasped, elevated and using the harmonic, this was excised. Hemostasis had been achieved. No other pathology was visualized. The Gelfoam and Vaseline gauze plug was created and inserted into the anus to also help achieve hemostasis. The area was then washed and dried and the patient was taken to the recovery room in a stable condition. Job ID: [id number] DocumentID: [id number] Dictated Date: 02/19/2020 09:01:18 Wine Merchant Date: 02/19/2020 13:19:33 Dictated By: DENISHA SPENCE DO
[2020-02-20] MEDS ORDERED: POLY119P5 PO (20:06)
== END 2020-02-19 10:30 | disposition home or self-care (01) ==
LOC: SDC 06:06
PROVIDERS: ATTEND Surgery
DX: K64.8 Other hemorrhoids (principal); K64.4 Residual hemorrhoidal skin tags; E66.9 Obesity, unspecified; I10 Essential (primary) hypertension; J30.1 Allergic rhinitis due to pollen; M79.7 Fibromyalgia; F41.9 Anxiety disorder, unspecified; F32.9 Major depressive disorder, single episode, unspecified; F17.210 Nicotine dependence, cigarettes, uncomplicated; Z88.0 Allergy status to penicillin; Z88.2 Allergy status to sulfonamides; Z88.1 Allergy status to other antibiotic agents; Z79.899 Other long term (current) drug therapy; Z68.36 Body mass index [BMI] 36.0-36.9, adult; Z83.3 Family history of diabetes mellitus; Z82.3 Family history of stroke
CPT/HCPCS: 84703; 87081; 94664

== ENCOUNTER 2020-02-20 18:11 | Emergency (ER) | payer MEDICARE, MEDICAID ==
[~2020-02-20] VITALS: Ht 167.7 cm; Wt 101.0 kg
[~2020-02-20 18:11] MED LIST changes: +HYDR-4226 PO
[2020-02-20 19:12] VITALS: BP 129/84
--- NOTE | 2020-02-20 19:21 | NUR ---
PATIENT REPORTS UNABLE TO REMOVE PACKING FROM HEMMORROID SURGERY SHE HAD YESTERDAY AM. WAS TO LEAVE IN PLACE FOR 24 HOURS WHICH WAS THIS AM
--- NOTE | 2020-02-20 19:37 | ED GI ---
General Chief Complaint: Rect Problems Stated Complaint: HERNIA SURGERY:UNABLE TO HAVE BM Source of Information: Patient Exam Limitations: No Limitations History of Present Illness Date Seen by Provider: February 20, 2020 Time Seen by Provider: 19:30 Initial Comments Patient had surgery yesterday with by Dr. Villanueva have to hemorrhoids resected. She had a petroleum Xeroform gauze plugged which she never sought past and now she says she is not able to pass stool. She feels some discomfort and pain radiating up her back about midway her lumbar spine. She took hydrocodone yesterday but none today. She has a lot of anxiety. She's not having any significant abdominal pain fever chills or nausea. Vital signs are aseptic per nursing. Patient admits that she may just being premature and anxious but she wants to make sure everything is okay. Allergies and Home Medications Allergies Coded Allergies: Penicillins (Verified Allergy, Mild, RASH/ITCHING, pt has rec Rocephin w/o issue, 02/19/20) clindamycin (Verified Allergy, Mild, RASH AND ITCHING, 02/12/20) sulfamethoxazole (Verified Allergy, Mild, RASH, 02/12/20) trimethoprim (Verified Allergy, Mild, RASH, 02/12/20) Home Medications ARIPiprazole 30 Mg Tab.senspt, 30 MG PO DAILY, (Reported) Cholecalciferol (Vitamin D3) 50 Mcg Capsule, 50 MCG PO DAILY, (Reported) Docusate Sodium 100 Mg Capsule, 100 MG PO BID Prescribed by: DENISHA VILLANUEVA on 02/19/20 0854 Duloxetine HCl 60 Mg Capsule.dr, 60 MG PO DAILY, (Reported) Ferrous Sulfate 325 Mg Tablet, 325 MG PO DAILY, (Reported) Hydrocodone/Acetaminophen 1 Each Tablet, 1 TAB PO Q4-6HR Prescribed by: DENISHA VILLANUEVA on 02/19/20 0854 Hydroxyzine HCl 25 Mg Tablet, 25 MG PO BID PRN for ANXIETY, (Reported) Lisinopril/Hydrochlorothiazide 1 Each Tablet, 1 TAB PO DAILY, (Reported) Methylphenidate HCl 18 Mg Tab.er.24, 18 MG PO DAILY, (Reported) Polyethylene Glycol 3350 119 Gm Powder, 17 GM PO BID PRN for CONSTIPATION-1ST LINE Prescribed by: MELISSA CA on 02/20/202005 Patient Home Medication List Home Medication List Reviewed: Yes Review of Systems Review of Systems Constitutional: No chills, No fever EENTM: No Blurred Vision, No Double Vision Respiratory: Denies Cough, Denies Orthopnea Cardiovascular: Denies Chest Pain, Denies Lightheadedness Gastrointestinal: See HPI; Denies Abdominal Pain; Constipated; Denies Diarrhea, Denies Difficulty Swallowing, Denies Nausea Genitourinary: Denies Burning, Denies Discharge Musculoskeletal: No back pain, No joint pain Skin: No pruritus, No rash Psychiatric/Neurological: Denies Headache, Denies Numbness All Other Systems Reviewed Negative Unless Noted: Yes Past Nwdahng-Tycjqq-Qjdcse Hx Patient Social History Alcohol Use: Rarely Uses Recreational Drug Use: No (SMOKE, CIGARETTES- 5-6 PER DAY) Type Used: Cigarettes, Electronic/Vapor 2nd Hand Smoke Exposure: Yes Recent Foreign Travel: No Contact w/Someone Who Travel: No Recent Hopitalizations: No Physical Abuse: No Sexual Abuse: No Mistreated: No Fear: No Immunizations Up To Date Tetanus Booster (TDap): Less than 5yrs PED Vaccines UTD: No Date of Influenza Vaccine: Jul 25, 2019 Seasonal Allergies Seasonal Allergies: No Past Medical History Surgeries: Yes (D&C, r/l wrist, r ring finger, RIGHT KNEE, HEMORRHOIDECTOMY) Orthopedic, Tonsillectomy Respiratory: No Cardiac: Yes Hypertension Neurological: No Reproductive Disorders: No Sexually Transmitted Disease: No Genitourinary: No Gastrointestinal: Yes Hemorrhoids Musculoskeletal: No Endocrine: No HEENT: No (READING GLASSES) Loss of Vision: Denies Hearing Impairment: Denies Cancer: No Psychosocial: Yes ADD/ADHD, Anxiety, Bipolar, Depression Integumentary: No Blood Disorders: No (IRON DEF ANMEIA) Adverse Reaction/Blood Tranf: No (N/A) Family Medical History No Pertinent Family Hx Physical Exam Vital Signs Vital Signs - First Documented 02/20/20 19:12 Temp 36.4 Pulse 89 Resp 20 B/P (MAP) 129/84 (99) Pulse Ox 97 Capillary Refill : Height/Weight/BMI Height: 5'6.00" Weight: 217lbs. oz. 98.040692rk; 36.21 BMI Method:Stated General Appearance: WD/WN, no apparent distress HEENT: PERRL/EOMI, pharynx normal Neck: full range of motion, normal inspection Respiratory: no respiratory distress, no accessory muscle use Cardiovascular: normal peripheral pulses, regular rate, rhythm Gastrointestinal: normal bowel sounds, non tender, soft Genital/Rectal: other (mildly inflamed soft tissue around external hemorrhoids and previously cauterized tissue noted. No active bleeding, purulence, drainage or discharge. No evidence of a Xeroform plug) Extremities: normal range of motion, normal inspection, normal capillary refill Neurologic/Psychiatric: alert, oriented x 3, other (mildly anxious affect) Progress/Results/Core Measures Results/Orders Lab Results Laboratory Tests Test 02/20/20 19:20 Range/Units Urine Color YELLOW Urine Clarity SL CLOUDY Urine pH 7.0 5-9 Urine Specific Strawn 1.020 1.016-1.022 Urine Protein NEGATIVE NEGATIVE Urine Glucose (UA) NEGATIVE NEGATIVE Urine Ketones NEGATIVE NEGATIVE Urine Nitrite NEGATIVE NEGATIVE Urine Bilirubin NEGATIVE NEGATIVE Urine Urobilinogen 0.2 < = 1.0 MG/DL Urine Leukocyte Esterase 1+ H NEGATIVE Urine RBC (Auto) 3+ H NEGATIVE Urine RBC 25-50 H /HPF Urine WBC 0-2 /HPF Urine Squamous Epithelial Cells 2-5 /HPF Urine Crystals NONE /LPF Urine Bacteria TRACE /HPF Urine Casts NONE /LPF Urine Mucus NEGATIVE /LPF Urine Culture Indicated NO My Orders Orders - MELISSA CA Abdomen, Flat & Upright/Decub (02/20/20 19:36) Ua Culture If Indicated (02/20/20 19:36) Vital Signs/I&O 02/20/20 19:12 Temp 36.4 Pulse 89 Resp 20 B/P (MAP) 129/84 (99) Pulse Ox 97 Progress Progress Note : Time: 20:00 Progress Note No obstruction, bleeding or concerning features on examination. Suspect that she needs to get more time, stool softeners. We'll discuss the case with Dr. Villanueva. Blood in the urinalysis is likely from the recent hemorrhoidectomy. No evidence of UTI suggest a pyelonephritis consistent with her history of back pain. Diagnostic Imaging Diagonstic Imaging: Xray Plain Films/CT/US/NM/MRI: abdomen Comments [facility]. [place], [place] NAME: ERNESTINA DIANA MED REC#: [id number] PT STATUS: REG ER : 1970 PHYSICIAN: MELISSA CA MD ADMIT DATE: 02/20/20/ER Signed Date of Exam:02/20/20 ABDOMEN, FLAT & UPRIGHT/DECUB Indication: Abdominal distention Supine and upright abdominal images are obtained Lung bases are clear. Bowel gas pattern is normal. There are no pathologic masses or calcifications. IMPRESSION: Unremarkable abdomen Dictated by: Dictated on workstation # [id number] Dict: 02/20/201946 Trans: 02/20/201946 [id number] Interpreted by: INEZ BONILLA MD Electronically signed by: INEZ BONILLA MD 02/20/201946 Reviewed: Reviewed by Me Consults : Consulting Physician: DENISHA VILLANUEVA DO Consults Notes 1954: Discussed case with Dr. Villanueva and he would not do anything different right now. Says use the hydrocodone as necessary for pain and stool softeners twice a day. If by Sunday she's not had a bowel movement then she should start using MiraLAX twice a day until she has a bowel movement. She may follow-up with him as necessary. Departure Impression Primary Impression: S/P hemorrhoidectomy Additional Impressions: Constipation Qualified Codes: K59.03 - Drug induced constipation Anxiety about health Disposition: HOME, SELF-CARE Condition: Stable Departure-Patient Inst. Decision time for Depature: 20:04 Referrals: MARIA DOLORES MOCTEZUMA MD (PCP/Family) Primary Care Physician Patient Instructions: Hemorrhoidectomy (DC) Add. Discharge Instructions: Dr. Villanueva agrees it is not unusual to go up to 3 days without passing a stool. Stay active walking around and chew bubble gum. As long as you are passing gas this is good. He would recommend taking the stool softener the chest Colace twice a day and drinking plenty of fluids. Use the hydrocodone as necessary to control your pain. Hydrocodone can contribute to constipation so be aware of this. His instructions or if you have not passed the stool by 02/23/20 then you are to start MiraLAX. MiraLAX 17 g or 1 capful mixed in 6-8 ounces of fluid twice a day until you have a bowel movement. You may always follow-up with Dr. Villanueva's clinic or return to the ER if you're having significant pain, fever, nausea vomiting or other worrisome symptoms. All discharge instructions reviewed with patient and/or family. Voiced understanding. Scripts Polyethylene Glycol 3350 (Miralax) 119 Gm Powder 17 GM PO BID PRN for CONSTIPATION-1ST LINE for 7 Days, #1 EA 0 Refills Prov: MELISSA CA 02/20/20 MELISSA CA February 20, 2020 19:37
[2020-02-20 19:40] LABS: BILIRUBIN,URINE NEGATIVE (NEGATIVE); COLOR,URINE YELLOW; GLUCOSE, URINE (UA) NEGATIVE (NEGATIVE); KETONES,URINE NEGATIVE (NEGATIVE); LEUKOCYTE ESTERASE ,URINE 1+ (NEGATIVE); NITRITE,URINE NEGATIVE (NEGATIVE); PROTEIN,URINE NEGATIVE (NEGATIVE)
[2020-02-20 19:44] LABS: BACTERIA,URINE TRACE /HPF; CLARITY,URINE SL CLOUDY; RBC,URINE 25-50 /HPF; WBC,URINE 0-2 /HPF
--- NOTE | 2020-02-20 19:49 | Diagnostic Imaging Report ---
Indication: Abdominal distention Supine and upright abdominal images are obtained Lung bases are clear. Bowel gas pattern is normal. There are no pathologic masses or calcifications. IMPRESSION: Unremarkable abdomen Dictated by: Dictated on workstation # [id number]
[2020-02-20] MEDS ORDERED: POLY119P5 PO (20:06)
== END 2020-02-20 20:10 | disposition home or self-care (01) ==
LOC: EDUNIT# 18:11 → ER 18:12
DX: K59.00 Constipation, unspecified (principal); F41.9 Anxiety disorder, unspecified; I10 Essential (primary) hypertension; F31.9 Bipolar disorder, unspecified; D50.9 Iron deficiency anemia, unspecified; F90.9 Attention-deficit hyperactivity disorder, unspecified type; Z98.890 Other specified postprocedural states; Z88.0 Allergy status to penicillin; Z88.2 Allergy status to sulfonamides; Z88.1 Allergy status to other antibiotic agents; Z77.22 Contact with and (suspected) exposure to environmental tobacco smoke (acute) (chronic)
CPT/HCPCS: 74019; 81000

== ENCOUNTER 2020-03-03 14:20 | Emergency (ER) | payer MEDICARE, MEDICAID ==
[~2020-03-03] VITALS: Ht 168 cm; Wt 101.0 kg
[~2020-03-03 14:20] MED LIST changes: +POLY119P5 PO
--- NOTE | 2020-03-03 14:58 | ED Lower Extremity ---
General Chief Complaint: Lower Extremity Stated Complaint: L FOOT INJ Nursing Triage Note: PT STATES SHE DROPPED SOFA ON LT FOOT AT NOON TODAY. MINOR SWELLING ACROSS HER TOES. PT AMBULATED TO TRIAGE. Nursing Sepsis Screen: No Definite Risk Source: patient Exam Limitations: no limitations History of Present Illness Date Seen by Provider: Mar 03, 2020 Time Seen by Provider: 14:57 Initial Comments Dropped a couch on the dorsal aspect of her left foot just prior to arrival Onset: just prior to arrival Severity: moderate Pain/Injury Location: left foot Allergies and Home Medications Allergies Coded Allergies: Penicillins (Verified Allergy, Mild, RASH/ITCHING, pt has rec Rocephin w/o issue, 02/19/20) clindamycin (Verified Allergy, Mild, RASH AND ITCHING, 02/12/20) sulfamethoxazole (Verified Allergy, Mild, RASH, 02/12/20) trimethoprim (Verified Allergy, Mild, RASH, 02/12/20) Home Medications ARIPiprazole 30 Mg Tab.senspt, 30 MG PO DAILY, (Reported) Cholecalciferol (Vitamin D3) 50 Mcg Capsule, 50 MCG PO DAILY, (Reported) Docusate Sodium 100 Mg Capsule, 100 MG PO BID Prescribed by: DENISHA VILLANUEVA on 02/19/20 0854 Duloxetine HCl 60 Mg Capsule.dr, 60 MG PO DAILY, (Reported) Ferrous Sulfate 325 Mg Tablet, 325 MG PO DAILY, (Reported) Hydrocodone/Acetaminophen 1 Each Tablet, 1 TAB PO Q4-6HR Prescribed by: DENISHA VILLANUEVA on 02/19/20 0854 Hydroxyzine HCl 25 Mg Tablet, 25 MG PO BID PRN for ANXIETY, (Reported) Lisinopril/Hydrochlorothiazide 1 Each Tablet, 1 TAB PO DAILY, (Reported) Methylphenidate HCl 18 Mg Tab.er.24, 18 MG PO DAILY, (Reported) Polyethylene Glycol 3350 119 Gm Powder, 17 GM PO BID PRN for CONSTIPATION-1ST LINE Prescribed by: MELISSA CA on 02/20/202005 Patient Home Medication List Home Medication List Reviewed: Yes Review of Systems Constitutional: see HPI EENTM: see HPI Respiratory: no symptoms reported Cardiovascular: no symptoms reported Genitourinary: no symptoms reported Musculoskeletal: see HPI Skin: see HPI Psychiatric/Neurological: No Symptoms Reported Past Fwkzjge-Efpnpt-Ludhwu Hx Patient Social History Alcohol Use: Denies Use Recreational Drug Use: Yes (SMOKE, CIGARETTES- 5-6 PER DAY) Smoking Status: Current Everyday Smoker Type Used: Cigarettes, Electronic/Vapor 2nd Hand Smoke Exposure: Yes Recent Foreign Travel: No Contact w/Someone Who Travel: No Recent Infectious Disease Expo: No Recent Hopitalizations: No Physical Abuse: No Sexual Abuse: No Mistreated: No Fear: No Immunizations Up To Date Tetanus Booster (TDap): Less than 5yrs PED Vaccines UTD: No Date of Influenza Vaccine: Jul 25, 2019 Seasonal Allergies Seasonal Allergies: No Past Medical History Surgeries: Yes (D&C, r/l wrist, r ring finger, RIGHT KNEE, HEMORRHOIDECTOMY) Orthopedic, Tonsillectomy Respiratory: No Cardiac: Yes Hypertension Neurological: No : No 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 Sexually Transmitted Disease: No Genitourinary: No Gastrointestinal: Yes Hemorrhoids Musculoskeletal: No Endocrine: No HEENT: No (READING GLASSES) Loss of Vision: Denies Hearing Impairment: Denies Cancer: No Psychosocial: Yes ADD/ADHD, Anxiety, Bipolar, Depression Integumentary: No Blood Disorders: No (IRON DEF ANMEIA) Adverse Reaction/Blood Tranf: No (N/A) Family Medical History No Pertinent Family Hx Physical Exam Vital Signs Vital Signs - First Documented 03/03/20 14:28 Temp 36.7 Pulse 105 Resp 20 B/P (MAP) 118/81 (93) Pulse Ox 97 O2 Delivery Room Air Capillary Refill : Less Than 3 Seconds Height, Weight, BMI Height: 5'6.00" Weight: 217lbs. oz. 98.847808mb; 35.00 BMI Method:Stated General Appearance: WD/WN, no apparent distress Respiratory: no respiratory distress, no accessory muscle use Hips: bilateral hip non-tender, bilateral hip normal inspection Legs: bilateral leg non-tender, bilateral leg normal range of motion Knees: bilateral knee non-tender, bilateral knee normal inspection Ankles: bilateral ankle non-tender, bilateral ankle normal inspection Feet: left foot swelling (and ecchymosis to the dorsal aspect of the left foot proximal to the MTP joint) Neurologic/Psychiatric: alert, normal mood/affect, oriented x 3 Skin: normal color, warm/dry Progress/Results/Core Measures Results/Orders My Orders Orders - KYM DIEHL APRN Foot, Left, 3 Views (6/10/20 14:38) Vital Signs/I&O 03/03/20 03/03/20 14:28 15:02 Temp 36.7 36.7 Pulse 105 98 Resp 20 20 B/P (MAP) 118/81 (93) 118/81 (93) Pulse Ox 97 98 O2 Delivery Room Air Room Air Blood Pressure Mean: 93 Departure Impression Primary Impression: Contusion of foot Qualified Codes: S90.32XA - Contusion of left foot, initial encounter Disposition: HOME, SELF-CARE Condition: Stable Departure-Patient Inst. Decision time for Depature: 14:58 Referrals: MARIA DOLORES MOCTEZUMA MD (PCP/Family) Primary Care Physician Patient Instructions: Contusion (DC) Add. Discharge Instructions: All discharge instructions reviewed with patient and/or family. Voiced understanding. 1. Ice pack to the area 30 minutes at a time a few times a day for the next few days in addition to Tylenol and ibuprofen. Return to ER for any concerns. KYM DIEHL HEAD OF MOBILE Mar 03, 2020 14:58
[2020-03-03 15:02] VITALS: BP 118/81
--- NOTE | 2020-03-03 15:07 | Diagnostic Imaging Report ---
EXAMINATION: Left foot radiographs, 3 views. COMPARISON: None. HISTORY: 49-year-old female, injury to left foot. Left foot pain. FINDINGS: There is dorsal soft tissue swelling at the level of the metatarsals. There is no identified radiopaque foreign body. There is degenerative type enthesopathy at the Achilles tendon insertion. There is a small calcaneal heel spur. There is no tibiotalar joint effusion. There is no identified acute fracture. Joint spaces are well preserved. IMPRESSION: 1. No identified acute fracture or abnormal bone alignment. 2. Dorsal soft tissue swelling at the level of the metatarsals. 3. No radiopaque foreign body. Dictated by: Dictated on workstation # [id number]
== END 2020-03-03 15:02 | disposition home or self-care (01) ==
LOC: EDUNIT# 14:20 → ER 14:22
DX: S90.32XA Contusion of left foot, initial encounter (principal); I10 Essential (primary) hypertension; F90.9 Attention-deficit hyperactivity disorder, unspecified type; F41.9 Anxiety disorder, unspecified; F31.9 Bipolar disorder, unspecified; D50.9 Iron deficiency anemia, unspecified; F17.210 Nicotine dependence, cigarettes, uncomplicated; F17.290 Nicotine dependence, other tobacco product, uncomplicated; Z88.0 Allergy status to penicillin; Z88.2 Allergy status to sulfonamides; Z88.1 Allergy status to other antibiotic agents; W20.8XXA Other cause of strike by thrown, projected or falling object, initial encounter
CPT/HCPCS: 73630

== ENCOUNTER 2020-10-14 21:52 | Emergency (ER) | payer MEDICARE, MEDICAID ==
[~2020-10-14] VITALS: Ht 167 cm; Wt 101.8 kg
[2020-10-14 22:11] LABS: BASOPHILS % (AUTO) 0 % (0-10); EOSINOPHILS # (AUTO) 0.2 10^3/uL (0.0-0.3); EOSINOPHILS % (AUTO) 2 % (0-10); HEMATOCRIT 40 % (35-52); HEMOGLOBIN 13.3 g/dL (11.5-16.0); LYMPHOCYTES # (AUTO) 3.7 10^3/uL (1.0-4.0); LYMPHOCYTES % (AUTO) 31 % (12-44); MEAN CORPUSCULAR HEMOGLOBIN 29 pg (25-34); MEAN CORPUSCULAR HGB CONC 34 g/dL (32-36); MEAN CORPUSCULAR VOLUME 88 fL (80-99); MEAN PLATELET VOLUME 10.7 fL (9.0-12.2); MONOCYTES # (AUTO) 0.8 10^3/uL (0.0-1.0); MONOCYTES % (AUTO) 7 % (0-12); NEUTROPHILS # (AUTO) 7.2 10^3/uL (1.8-7.8); NEUTROPHILS % (AUTO) 60 % (42-75); PLATELET COUNT 317 10^3/uL (130-400)
[2020-10-14] MEDS ORDERED: ASPIRIN 81 MG CHEW (CHILDREN'S ASA) PO ONE (22:15)
--- NOTE | 2020-10-14 22:17 | ED Cardiac General ---
History of Present Illness General Chief Complaint: Chest Pain Stated Complaint: PRESSURE IN CHEST, HEADACHE, LIGHT HEADED Source: patient History of Present Illness Date Seen by Provider: Oct 14, 2020 Time Seen by Provider: 22:00 Initial Comments PT ARRIVES VIA POV FROM HOME C/O CHEST PRESSURE SINCE SOMETIME THIS AFTERNOON HAS INTERMITTENT SHARP PAINS IN CHEST, THEN PRESSURE IN CHEST --ALL COME AND GO. STATES SHARP PAINS ARE 6/10, PRESSURE IN CHEST IS 3/10--HAS SLIGHT PRESSURE IN CHEST NOW, BUT THEN IS GONE SHORTLY AFTER ARRIVAL ALSO C/O HEADACHE SINCE WAKING THIS AM C/O SLIGHT LIGHTHEADEDNESS NO VISION CHANGES NO PARESTHESIAS OR MOTOR DEFICITS NO SHORTNESS OF BREATH NO FEVER/SWEATS/CHILLS C/O MILD NAUSEA, NO VOMITING OR ABDOMINAL PAIN HAS BEEN "PUFFY" TODAY, BUT IS ALMOST GONE NOW GOES ON AT LENGTH ABOUT "HAVING A BAD DAY AND MY ANXIETY IS BAD TODAY" BUT DOES NOT GO INTO SPECIFICS C/O BEING TIRED BUT CAN'T SLEEP NO COUGH/CONGESTION OR URI SYMPTOMS NO LOSS OF TASTE OR SMELL NO BODY ACHES NO KNOWN SICK CONTACTS OR EXPOSURE TO COVID-19 HAS HTN AND TAKES LISINOPRIL--DENIES ANY MISSED DOSES OR CHANGE IN DOSE HAS ANXIETY--DENIES ANY MISSED DOSES OR CHANGE IN DOSE STATES SHE HAS HAD THESE SAME SYMPTOMS WITH ANXIETY DENIES ANY CARDIAC HISTORY SAW DR. MOCTEZUMA 2 WEEKS AGO FOR ROUTINE EXAM. NO MEDICATION CHANGES LAST SAW [facility] IN [place] FOR ROUTINE EXAM. NO MEDICATION CHANGES. PCP: DR. MOCTEZUMA AT [facility]: [facility] Allergies and Home Medications Allergies Coded Allergies: Penicillins (Verified Allergy, Mild, RASH/ITCHING, pt has rec Rocephin w/o issue, 02/19/20) clindamycin (Verified Allergy, Mild, RASH AND ITCHING, 02/12/20) sulfamethoxazole (Verified Allergy, Mild, RASH, 02/12/20) trimethoprim (Verified Allergy, Mild, RASH, 02/12/20) Home Medications ARIPiprazole 30 Mg Tab.senspt, 30 MG PO DAILY, (Reported) Cholecalciferol (Vitamin D3) 50 Mcg Capsule, 50 MCG PO DAILY, (Reported) Docusate Sodium 100 Mg Capsule, 100 MG PO BID Prescribed by: DENISHA VILLANUEVA on 02/19/20 0854 Duloxetine HCl 60 Mg Capsule.dr, 60 MG PO DAILY, (Reported) Ferrous Sulfate 325 Mg Tablet, 325 MG PO DAILY, (Reported) Hydrocodone/Acetaminophen 1 Each Tablet, 1 TAB PO Q4-6HR Prescribed by: DENISHA VILLANUEVA on 02/19/20 0854 Hydroxyzine HCl 25 Mg Tablet, 25 MG PO BID PRN for ANXIETY, (Reported) Lisinopril/Hydrochlorothiazide 1 Each Tablet, 1 TAB PO DAILY, (Reported) Methylphenidate HCl 18 Mg Tab.er.24, 18 MG PO DAILY, (Reported) Polyethylene Glycol 3350 119 Gm Powder, 17 GM PO BID PRN for CONSTIPATION-1ST LINE Prescribed by: MELISSA CA on 02/20/202005 Patient Home Medication List Home Medication List Reviewed: Yes Review of Systems Review of Systems Constitutional: see HPI; No chills, No diaphoresis; dizziness; No fever, No malaise, No weakness; weight gain (20 LBS) EENTM: No Symptoms Reported Respiratory: No Symptoms Reported; Denies Cough, Denies Shortness of Air Cardiovascular: See HPI, Edema; Denies Irregular Heart Rate; Lightheadedness; Denies Palpitations, Denies Syncope Gastrointestinal: See HPI; Denies Abdominal Pain, Denies Diarrhea; Nausea; Denies Vomiting Genitourinary: No Symptoms Reported, Other (PERIMENOPAUSAL--LAST PERIOD ABOUT 9 MONTHS AGO. ) Musculoskeletal: No no symptoms reported, No back pain, No neck pain Skin: no symptoms reported Psychiatric/Neurological: See HPI, Anxiety, Headache; Denies Numbness, Denies Paresthesia, Denies Seizure, Denies Tingling, Denies Tremors, Denies Weakness Endocrine: No Symptoms Reported Hematologic/Lymphatic: No Symptoms Reported Past [id number] Hx Past Med/Social Hx: Reviewed and Corrections made Patient Social History Alcohol Use: Rarely Uses Drug of Choice: TRIED DRUGS TEEN, NO IV DRUGS Smoking Status: Current Everyday Smoker (1 PPD) Type Used: Cigarettes, Electronic/Vapor 2nd Hand Smoke Exposure: Yes Recent Hopitalizations: No Immunizations Up To Date Tetanus Booster (TDap): Less than 5yrs PED Vaccines UTD: No Date of Influenza Vaccine: Jul 25, 2019 Seasonal Allergies Seasonal Allergies: No Past Medical History Surgeries: Yes (D&C, r/l wrist, r ring finger, RIGHT KNEE, HEMORRHOIDECTOMY) Orthopedic, Rectal, Tonsillectomy Respiratory: No Cardiac: Yes Hypertension Neurological: No 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 oz. 98.368978iv; 35.00 BMI Method:Stated General Appearance: No Apparent Distress, WD/WN, Anxious, Obese, Other (TALKS NON-STOP AT LENGTH) HEENT: PERRL/EOMI Neck: Full Range of Motion, Normal Inspection, Non Tender, Supple; No Carotid Bruit, No JVD Respiratory: Chest Non Tender, Normal Breath Sounds, No Accessory Muscle Use, No Respiratory Distress Cardiovascular: Regular Rate, Rhythm, No Edema, No JVD, No Murmur, Normal Peripheral Pulses Gastrointestinal: Non Tender, Soft Extremity: Normal Capillary Refill, Normal Inspection, Normal Range of Motion, Non Tender, No Calf Tenderness, No Pedal Edema Neurologic/Psychiatric: Alert, Oriented x3, No Motor/Sensory Deficits, heavy cleaner II- XII Norm as Tested, Other (ANXIOUS) Skin: Normal Color, Warm/Dry Progress/Results/Core Measures Results/Orders Lab Results Laboratory Tests Test 10/14/20 22:05 10/14/20 22:50 10/14/20 22:59 Range/Units White Blood Count 12.0 H 4.3-11.0 10^3/uL Red Blood Count 4.52 3.80-5.11 10^6/uL Hemoglobin 13.3 11.5-16.0 g/dL Hematocrit 40 35-52 % Mean Corpuscular Volume 88 80-99 fL Mean Corpuscular Hemoglobin 29 25-34 pg Mean Corpuscular Hemoglobin Concent 34 32-36 g/dL Red Cell Distribution Width 14.9 H 10.0-14.5 % Platelet Count 317 130-400 10^3/uL Mean Platelet Volume 10.7 9.0-12.2 fL Immature Granulocyte % (Auto) 0 % Neutrophils (%) (Auto) 60 42-75 % Lymphocytes (%) (Auto) 31 12-44 % Monocytes (%) (Auto) 7 0-12 % Eosinophils (%) (Auto) 2 0-10 % Basophils (%) (Auto) 0 0-10 % Neutrophils # (Auto) 7.2 1.8-7.8 10^3/uL Lymphocytes # (Auto) 3.7 1.0-4.0 10^3/uL Monocytes # (Auto) 0.8 0.0-1.0 10^3/uL Eosinophils # (Auto) 0.2 0.0-0.3 10^3/uL Basophils # (Auto) 0.0 0.0-0.1 10^3/uL Immature Granulocyte # (Auto) 0.1 0.0-0.1 10^3/uL Prothrombin Time 12.9 12.2-14.7 SEC INR Comment 0.9 0.8-1.4 Activated Partial Thromboplast Time 32 24-35 SEC Sodium Level 138 135-145 MMOL/L Potassium Level 3.4 L 3.6-5.0 MMOL/L Chloride Level 101 98-107 MMOL/L Carbon Dioxide Level 25 21-32 MMOL/L Anion Gap 12 5-14 MMOL/L Blood Urea Nitrogen 10 7-18 MG/DL Creatinine 0.97 0.60-1.30 MG/DL Estimat Glomerular Filtration Rate > 60 BUN/Creatinine Ratio 10 Glucose Level 125 H 70-105 MG/DL Calcium Level 9.5 8.5-10.1 MG/DL Corrected Calcium 9.3 8.5-10.1 MG/DL Magnesium Level 2.1 1.6-2.4 MG/DL Total Bilirubin 0.2 0.1-1.0 MG/DL Aspartate Amino Transf (AST/SGOT) 16 5-34 U/L Alanine Aminotransferase (ALT/SGPT) 17 0-55 U/L Alkaline Phosphatase 112 40-136 U/L Total Creatine Kinase 153 29-168 U/L Creatine Kinase MB 0.6 <6.6 NG/ML Myoglobin 35.2 10.0-92.0 NG/ML Troponin I < 0.028 <0.028 NG/ML B-Type Natriuretic Peptide < 10.0 <100.0 PG/ML Total Protein 7.9 6.4-8.2 GM/DL Albumin 4.2 3.2-4.5 GM/DL Amylase Level 42 25-125 U/L Lipase 9 8-78 U/L Urine Color YELLOW Urine Clarity CLEAR Urine pH 6.0 5-9 Urine Specific [place] 1.020 1.016-1.022 Urine Protein NEGATIVE NEGATIVE Urine Glucose (UA) NEGATIVE NEGATIVE Urine Ketones NEGATIVE NEGATIVE Urine Nitrite NEGATIVE NEGATIVE Urine Bilirubin NEGATIVE NEGATIVE Urine Urobilinogen 0.2 < = 1.0 MG/DL Urine Leukocyte Esterase NEGATIVE NEGATIVE Urine RBC (Auto) NEGATIVE NEGATIVE Urine RBC 2-5 H /HPF Urine WBC 0-2 /HPF Urine Squamous Epithelial Cells 0-2 /HPF Urine Crystals NONE /LPF Urine Bacteria TRACE /HPF Urine Casts NONE /LPF Urine Mucus MODERATE H /LPF Urine Culture Indicated NO Urine Opiates Screen NEGATIVE NEGATIVE Urine Oxycodone Screen NEGATIVE NEGATIVE Urine Methadone Screen NEGATIVE NEGATIVE Urine Propoxyphene Screen NEGATIVE NEGATIVE Urine Barbiturates Screen NEGATIVE NEGATIVE Ur Tricyclic Antidepressants Screen NEGATIVE NEGATIVE Urine Phencyclidine Screen NEGATIVE NEGATIVE Urine Amphetamines Screen NEGATIVE NEGATIVE Urine Methamphetamines Screen NEGATIVE NEGATIVE Urine Benzodiazepines Screen NEGATIVE NEGATIVE Urine Cocaine Screen NEGATIVE NEGATIVE Urine Cannabinoids Screen NEGATIVE NEGATIVE Urine Test NEGATIVE NEGATIVE My Orders Orders - DON ANDINO DO Cbc With Automated Diff (10/14/20 22:02) Magnesium (10/14/20 22:02) Chest 1 View, Ap/Pa Only (10/14/20 22:02) Ekg Tracing (10/14/20 22:02) Comprehensive Metabolic Panel (10/14/20 22:02) Myoglobin Serum (10/14/20 22:02) Protime With Inr (10/14/20 22:02) Partial Thromboplastin Time (10/14/20 22:02) Monitor-Rhythm Ecg Trace Only (10/14/20 22:02) Ed Iv/Invasive Line Start (10/14/20 22:02) Creatine Kinase (10/14/20 22:02) Creatine Kinase Mb (10/14/20 22:02) Lipase (10/14/20 22:02) Amylase (10/14/20 22:02) BNP (10/14/20 22:02) Troponin I (10/14/20 22:02) Aspirin Chewable Tablet (Baby Aspirin Ch (10/14/20 22:15) Drug Screen Stat (Urine) (10/14/20 22:02) Ua Culture If Indicated (10/14/20 22:02) Hcg,Qualitative Urine (10/14/20 22:59) Medications Given in ED Current Medications Medications Dose Ordered Sig/Joseph Route Start Time Stop Time Status Last Admin Dose Admin Aspirin 324 mg ONCE ONCE PO 10/14/20 22:15 10/14/20 22:17 DC 10/14/20 22:09 324 MG Vital Signs/I&O 10/14/20 10/14/20 10/14/20 22:00 22:00 23:09 Temp 36.8 36.8 Pulse 93 83 Resp 18 17 B/P (MAP) 153/98 (116) 123/86 (116) Pulse Ox 97 98 O2 Delivery Room Air Room Air Room Air Progress Progress Note : Progress Note GIVEN ASPIRIN, NTG HELD DUE TO NO ACTIVE PAIN AT THIS TIME, AND ALREADY HAS A HEADACHE BP DOWN TO 120'S/80'S SHORTLY AFTER ARRIVAL, AND HEADACHE IS GONE, PT IS CALMER NO CHEST PAIN DURING ER STAY PT FEELS COMFORTABLE GOING HOME Initial ECG Impression Date: Oct 14, 2020 Initial ECG Impression Time: 22:00 Initial ECG Rate: 83 Initial ECG Rhythm: Normal Sinus Initial ECG Impression: Nonspecific Changes Diagnostic Imaging Comments CXR--NO ACUTE PROCESS, PENDING RADIOLOGIST REVIEW Reviewed: Reviewed by Me Departure Impression Primary Impression: Chest pain Additional Impressions: HTN (hypertension) Anxiety Disposition: 01 HOME, SELF-CARE Condition: Improved Departure-Patient Inst. Referrals: MARIA DOLORES MOCTEZUMA MD (PCP/Family) Primary Care Physician Patient Instructions: Chest Pain (DC), High Blood Pressure (DC), DASH Diet, Anxiety, Adult ED, Tips to Help You [place] in Uncertain Times Add. Discharge Instructions: HOME, REST CONTINUE YOUR CURRENT MEDICATIONS PRESCRIBED TAKE 81 MG ASPIRIN DAILY FOLLOW UP WITH YOUR DR THIS WEEK FOR FURTHER CARE, RETURN TO ER IF SYMPTOMS WORSEN All discharge instructions reviewed with patient and/or family. Voiced understanding. DON ANDINO DO Oct 14, 2020 22:17
[2020-10-14 22:19] LABS: INR 0.9 (0.8-1.4); PROTHROMBIN TIME PATIENT 12.9 SEC (12.2-14.7)
[2020-10-14 22:33] LABS: ALANINE AMINOTRANSFERASE 17 U/L (0-55); ALBUMIN 4.2 GM/DL (3.2-4.5); ALKALINE PHOSPHATASE 112 U/L (40-136); AMYLASE 42 U/L (25-125); BILIRUBIN,TOTAL 0.2 MG/DL (0.1-1.0); BUN/CREATININE RATIO 10; CALCIUM 9.5 MG/DL (8.5-10.1); CARBON DIOXIDE 25 MMOL/L (21-32); CHLORIDE 101 MMOL/L (98-107); CREATINE KINASE 153 U/L (29-168); CREATININE SERUM 0.97 MG/DL (0.60-1.30); GFR ESTIMATED > 60; GLUCOSE 125 MG/DL (70-105); LIPASE 9 U/L (8-78); MAGNESIUM 2.1 MG/DL (1.6-2.4); POTASSIUM 3.4 MMOL/L (3.6-5.0); SODIUM 138 MMOL/L (135-145); TOTAL PROTEIN 7.9 GM/DL (6.4-8.2)
[2020-10-14 22:40] LABS: CREATINE KINASE MB 0.6 NG/ML (<6.6)
[2020-10-14 22:57] LABS: BILIRUBIN,URINE NEGATIVE (NEGATIVE); CLARITY,URINE CLEAR; COLOR,URINE YELLOW; GLUCOSE, URINE (UA) NEGATIVE (NEGATIVE); KETONES,URINE NEGATIVE (NEGATIVE); LEUKOCYTE ESTERASE ,URINE NEGATIVE (NEGATIVE); NITRITE,URINE NEGATIVE (NEGATIVE); PROTEIN,URINE NEGATIVE (NEGATIVE)
[2020-10-14 23:06] LABS: BACTERIA,URINE TRACE /HPF; SQUAMOUS EPITHELIAL CELL,UR 0-2 /HPF; WBC,URINE 0-2 /HPF
[2020-10-14 23:09] VITALS: BP 123/86
[2020-10-14 23:10] LABS: AMPHETAMINE SCREEN, URINE NEGATIVE (NEGATIVE); BARBITURATE SCREEN URINE NEGATIVE (NEGATIVE); BENZODIAZEPINES SCREEN URINE NEGATIVE (NEGATIVE); CANNABINOID SCREEN, URINE NEGATIVE (NEGATIVE); COCAINE SCREEN URINE NEGATIVE (NEGATIVE); METHADONE STAT NEGATIVE (NEGATIVE); METHAMPHETAMINE SCREEN URINE S NEGATIVE (NEGATIVE); OPIATE SCREEN URINE NEGATIVE (NEGATIVE); OXYCODONE STAT NEGATIVE (NEGATIVE); PROPOXYPHENE STAT NEGATIVE (NEGATIVE); TRICYCLIC ANTIDEPRESSANTS SCRE NEGATIVE (NEGATIVE)
--- NOTE | 2020-10-15 07:05 | Diagnostic Imaging Report ---
EXAMINATION: Chest radiograph, portable AP view. DATE: 10/14/2020 10:21 PM INDICATION: 50-year-old female, chest pain. COMPARISON: January 02, 2018. FINDINGS: Heart size and mediastinal contours are unremarkable. There is no identified pneumothorax. There is no large pleural effusion. There is no identified focal airspace consolidation. IMPRESSION: No identified acute cardiopulmonary abnormality. Dictated by: Dictated on workstation # [id number]
== END 2020-10-14 23:09 | disposition home or self-care (01) ==
LOC: EDUNIT# 21:52 → ER 21:55
DX: R07.9 Chest pain, unspecified (principal); I10 Essential (primary) hypertension; F41.9 Anxiety disorder, unspecified; E66.9 Obesity, unspecified; F32.9 Major depressive disorder, single episode, unspecified; F90.9 Attention-deficit hyperactivity disorder, unspecified type; F17.210 Nicotine dependence, cigarettes, uncomplicated; F17.290 Nicotine dependence, other tobacco product, uncomplicated; Z68.35 Body mass index [BMI] 35.0-35.9, adult; Z88.0 Allergy status to penicillin; Z88.1 Allergy status to other antibiotic agents; Z88.2 Allergy status to sulfonamides
CPT/HCPCS: 36415; 71045; 80053; 80306; 81000; 82150; 82550; 82553; 83690; 83735; 83874; 83880; 84484; 84703; 85025; 85610; 85730; 93005; 93041

== ENCOUNTER 2021-09-10 09:58 | Emergency (ER) | payer MEDICARE, MEDICAID ==
[~2021-09-10] VITALS: Ht 167.7 cm; Wt 108.8 kg
[~2021-09-10 09:58] MED LIST changes: +DULO60CA7 PO; -LISI1TAB29 PO; +LISI1TAB44 PO
[2021-09-10] MEDS ORDERED: ORPHENADRINE 60 MG/2 ML (NORFLEX) AMP (ED ONLY) IM ONE (10:45)
[2021-09-10] MEDS ORDERED: KETOROLAC 60 MG/2 ML VIAL IM ONE (10:45)
[2021-09-10] MEDS ORDERED: PRD20T PO (10:47)
[2021-09-10] MEDS ORDERED: METH-732 PO (10:47)
--- NOTE | 2021-09-10 10:48 | ED Back Pain ---
General Chief Complaint: Back Problems Stated Complaint: BACK PAIN Nursing Triage Note: PT AMB TO [facility] 6 WITH COMPLANT OF BACK PAIN. STATES SLEPT ON BACK WRONG 2 WEEKS AGO AND HAS BEEN TAKING IBUPROFEN. STATES PAIN WORSENED THE LAST 3 DAYS. Source of Information: Patient Exam Limitations: No Limitations History of Present Illness Date Seen by Provider: Sep 10, 2021 Time Seen by Provider: 10:46 Initial Comments To ER with low back pain. Thoracic in location started 3 weeks ago after sleeping wrong and is progressively worse over the past 3 days such that she was only able to sleep in 2-hour intervals last night. No urinary symptoms no loss of bowel or bladder control no fever no chills no trauma. Location: Paraspinous Muscles, T-Spine Timing/Duration: Other (3 weeks) Severity: Moderate Pain/Injury Location: None Method of Injury: Unknown Associated Symptoms: denies symptoms Allergies and Home Medications Allergies Coded Allergies: Penicillins (Verified Allergy, Mild, RASH/ITCHING, pt has rec Rocephin w/o issue, 02/19/20) clindamycin (Verified Allergy, Mild, RASH AND ITCHING, 02/12/20) sulfamethoxazole (Verified Allergy, Mild, RASH, 02/12/20) trimethoprim (Verified Allergy, Mild, RASH, 02/12/20) Patient Home Medication List Home Medication List Reviewed: Yes ARIPiprazole (Abilify Mycite) 30 Mg Tab.senspt, 30 MG PO DAILY, (Reported) Entered as Reported by: CHAPO MONTEZ on 02/12/20 1546 Cholecalciferol (Vitamin D3) (Vitamin D3) 50 Mcg Capsule, 50 MCG PO DAILY, (Reported) Entered as Reported by: CHAPO MONTEZ on 02/12/20 1546 Docusate Sodium (Colace) 100 Mg Capsule, 100 MG PO BID Prescribed by: DENISHA VILLANUEVA on 02/19/20 0854 Duloxetine HCl (Cymbalta) 60 Mg Capsule.dr, 60 MG PO DAILY, (Reported) Entered as Reported by: CHAPO MONTEZ on 07/25/19 1215 Ferrous Sulfate (Iron) 325 Mg Tablet, 325 MG PO DAILY, (Reported) Entered as Reported by: CHAPO MONTEZ on 07/25/19 1215 Hydrocodone/Acetaminophen (Hydrocodone/Acetaminophen 5 MG/325 MG TAB) 1 Each Tablet, 1 TAB PO Q4-6HR Prescribed by: DENISHA VILLANUEVA on 02/19/20 0854 Hydroxyzine HCl (Hydroxyzine HCl) 25 Mg Tablet, 25 MG PO BID PRN for ANXIETY, (Reported) Entered as Reported by: CHAPO MONTEZ on 07/25/19 1215 Lisinopril/Hydrochlorothiazide (Lisinopril-Hctz 10-12.5 mg Tab) 1 Each Tablet, 1 TAB PO DAILY, (Reported) Entered as Reported by: WILVER HERNANDEZ on 05/30/15 0223 Methocarbamol (Methocarbamol) 750 Mg Tablet, 750 MG PO Q6-8HR Prescribed by: KYM DIEHL on 09/10/21 1047 Methylphenidate HCl (Methylphenidate ER) 18 Mg Tab.er.24, 18 MG PO DAILY, (Reported) Entered as Reported by: CHAPO MONTEZ on 07/25/19 1215 Polyethylene Glycol 3350 (Miralax) 119 Gm Powder, 17 GM PO BID PRN for CONSTIPATION-1ST LINE Prescribed by: MELISSA CA on 02/20/202005 Prednisone (Prednisone) 20 Mg Tab, 40 MG PO DAILY Prescribed by: KYM DIEHL on 09/10/21 1047 Review of Systems Constitutional: see HPI EENTM: see HPI Respiratory: no symptoms reported Cardiovascular: no symptoms reported Genitourinary: no symptoms reported Musculoskeletal: see HPI, back pain Skin: no symptoms reported Psychiatric/Neurological: No Symptoms Reported Past Aomswcf-Uxrvfc-Qafvmw Hx Patient Social History Tobacco Use?: Yes Tobacco type used: Cigarettes Smoking Status: Current Everyday Smoker Substance use?: No Alcohol Use?: No Pt feels they are or have been: No Immunizations Up To Date Tetanus Booster (TDap): Less than 5yrs PED Vaccines UTD: No Seasonal Allergies Seasonal Allergies: No Past Medical History Surgeries: Yes (D&C, r/l wrist, r ring finger, RIGHT KNEE, HEMORRHOIDECTOMY) Orthopedic, Rectal, Tonsillectomy Respiratory: No Cardiac: Yes Hypertension Neurological: No 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 Sexually Transmitted Disease: No Genitourinary: No Gastrointestinal: Yes Hemorrhoids Musculoskeletal: No Endocrine: No HEENT: No (READING GLASSES) Loss of Vision: Denies Hearing Impairment: Denies Cancer: No Psychosocial: Yes ADD/ADHD, Anxiety, Bipolar, Depression Integumentary: No Blood Disorders: No (IRON DEF ANMEIA) Adverse Reaction/Blood Tranf: No (N/A) Family Medical History No Pertinent Family Hx Physical Exam Vital Signs Vital Signs - First Documented 09/10/21 10:08 Temp 35.4 Pulse 105 Resp 14 B/P (MAP) 158/101 (120) Pulse Ox 96 O2 Delivery Room Air Capillary Refill : Less Than 3 Seconds Height, Weight, BMI Height: 5'6.00" Weight: 217lbs. oz. 98.946807oo; 38.00 BMI Method:Stated General Appearance: No Apparent Distress, WD/WN HEENT: PERRL/EOMI, TMs Normal Neck: Full Range of Motion, Normal Inspection Respiratory: Normal Breath Sounds, No Accessory Muscle Use, No Respiratory Distress Gastrointestinal: Normal Bowel Sounds, Non Tender, Soft Extremity: Normal Capillary Refill, Normal Inspection Neurologic/Psychiatric: Alert, Oriented x3 Progress/Results/Core Measures Results/Orders My Orders Orders - KYM DIEHL APRN Ketorolac Injection (Toradol Injection) (09/10/21 10:45) Orphenadrine Inj (Ed Only) (Norflex Inje (09/10/21 10:45) Vital Signs/I&O 09/10/21 10:08 Temp 35.4 Pulse 105 Resp 14 B/P (MAP) 158/101 (120) Pulse Ox 96 O2 Delivery Room Air Blood Pressure Mean: 120 Departure Impression Primary Impression: Acute low back pain Disposition: 01 HOME, SELF-CARE Condition: Stable Departure-Patient Inst. Decision time for Depature: 10:46 Referrals: MARIA DOLORES MOCTEZUMA MD (PCP/Family) Primary Care Physician Patient Instructions: Low Back Pain ED Add. Discharge Instructions: 1. Medication as directed. Follow-up with your doctor next week. All discharge instructions reviewed with patient and/or family. Voiced understanding. Scripts Methocarbamol (Methocarbamol) 750 Mg Tablet 750 MG PO Q6-8HR for Back Pain, #20 TAB Prov: KYM DIEHL APRN 09/10/21 Prednisone (Prednisone) 20 Mg Tab 40 MG PO DAILY, #6 TAB 0 Refills Prov: KYM DIEHL APRN 09/10/21 Work/School Note: Work Release Form Date Seen in the Emergency Department: Sep 10, 2021 Return to Work: Sep 12, 2021 KYM DIEHL APRN Sep 10, 2021 10:47
[2021-09-10 11:32] VITALS: BP 134/99
== END 2021-09-10 11:32 | disposition home or self-care (01) ==
LOC: EDUNIT# 09:58 → ER 10:01
DX: M54.50 Low back pain, unspecified (principal); I10 Essential (primary) hypertension; F41.9 Anxiety disorder, unspecified; F31.9 Bipolar disorder, unspecified; F17.210 Nicotine dependence, cigarettes, uncomplicated; Z79.899 Other long term (current) drug therapy
CPT/HCPCS: 99284